=== PATIENT | female | born 1995 ===

== ENCOUNTER 2018-03-30 13:39 | Inpatient (IN) | payer BC ==
[2018-03-30 13:52] VITALS: RESP 18; O2SAT 99
--- NOTE | 2018-03-30 14:32 | ED PDOC ---
Psych Transfer Clearance - Clearance Statement Clearance Statement: Reviewed vital signs, lab results and transfer papers. Patient clinically stable for psychiatric admission.
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
[2018-03-30] MEDS ORDERED: DiphenhydrAMINE 50 mg/ml Inj IM PRN (15:35)
[2018-03-30] MEDS ORDERED: Magnesium Hydroxide Susp 30 ml UD PO PRN (15:35)
[2018-03-30] MEDS ORDERED: Alum-Mag Hydrox-Simethicone Susp (30 mL) PO PRN (15:35)
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
[2018-03-31 07:34] LABS: T4 9.76 ug/dl (5.5-11.0)
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
[2018-04-01] MEDS ORDERED: Venlafaxine 37.5 mg ER Cap PO SCH (09:00)
--- NOTE | 2018-04-01 15:10 | PCM.PYCHPN ---
Psychiatric Progress Note - Psychiatric Progress Note Patient seen today, length of contact: pt evaluated discussed with team chart reviewed Patient Chief Complaint: I feel better, I have a lot of support from my family Problems Identified/Issues Discussed: pt evaluated , reported feeling less depressed, recieving lot of social support from parents and friends, pt presenting with brighter affect able to verbalize better coping skills with stress , and in agreement with stating therapy on discharge, no reported side effects of effexor pt denied any current active suicidal ideation, denied perceptual disturbances Medical Problems: pt has received counseling at age 17 due to strained relation with mother . at age 20ys seen by psychiatrist placed on lexapro, non compliant DSM 5 Symptoms Update: major depression borderline personality traits Medication Change: No Medical Record Reviewed: Yes Mental Status Examination - Cognitive Function Orientation: Person, Place, Situation Memory: Intact Attention: WNL Concentration: WNL Association: WNL Fund of Knowledge: [facility] Decription of patient's judgement and insights: fair insight , poor impulse control - Mood Mood: Anxious - Affect Affect: Constricted, Depressed - Speech Speech: Soft - Formal Thought Process Formal Thought Process: No Impairment Psychotic Thoughts and Behaviors: pt denied psychotic symptoms, non elicited - Suicidal Ideation Suicidal Ideation: No - Homicidal Ideation Homicidal Ideation: No Goal/Treatment Plan - Goal/Treatment Plan Need for Continued Stay: Severe depression anxiety, Discharge may exacerbated symptoms Progress Toward Problem(s) and Goals/Treatment Plan: continue effexor 37.5mg daily to given after lunch for better tolerance trazodone 50mg qhs CBT group and supportive therapy Estimated Date of D/C: 04/02/18
[2018-04-01 17:52] VITALS: BP 124/68; PULSE 80; TEMP 97.1
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
== END 2018-04-02 12:23 | disposition home or self-care (01) | DRG 881 ==
LOC: H.ER 13:39 → H.ERHOLD 14:16 → H.PSYCH 14:33
PROVIDERS: ADMIT Psychiatry & Neurology Psychiatry; ATTEND Psychiatry & Neurology Psychiatry
PROC: GZHZZZZ Group Psychotherapy (ICD-10-PCS; principal; 2018-03-30)
PROC: GZ58ZZZ Individual Psychotherapy, Cognitive-Behavioral (ICD-10-PCS; 2018-03-30)
PROC: GZ56ZZZ Individual Psychotherapy, Supportive (ICD-10-PCS; 2018-03-30)
DX: F32.9 Major depressive disorder, single episode, unspecified (principal); Z91.14 Patient's other noncompliance with medication regimen; F12.10 Cannabis abuse, uncomplicated